=== PATIENT | female | born 1995 | race Asian ===

== ENCOUNTER → 2016-07-18 | Outpatient (CLI) | payer OTHER ==
--- NOTE | 2016-07-18 11:26 | CT ---
CT Scan of the Head (Without Contrast) Clinical History: 20-year-old female with increasing migraine headaches. Rule out structural abnormal ity. ICD 10 Diagnostic Code: G43.909. Technique: Axial unenhanced images were obtained from the vertex through the skull base, reformatted at 5.00 and 1.50 mm increments, and reviewed in bone, brain, and subdural windows. Images were repro cessed in parasagittal and paracoronal planes. The DFOV is 25.0 cm. Dose reduction techniques were ut ilized. Comparison Study: None. Findings: The ventricles and basilar cisterns are normal in size and symmetrical in configuration. Th ere is no midline shift, or other evidence of mass effect. There is no abnormal intra or extra-axial blood collection, or acute infarction identified. The paranasal sinuses and the mastoids are patent. The craniocervical junction, sella turcica, pineal gland, and the orbits are within normal limits. Impression: There is no acute abnormality identified on this unenhanced CT evaluation. If there is further clinical concern regarding the patient's symptoms, MR imaging is suggested, if no t otherwise contraindicated.
== END ==
LOC: FIMAGING 10:43
PROVIDERS: ATTEND Psychiatry & Neurology Neurology
DX: G43.909 Migraine, unspecified, not intractable, without status migrainosus (principal)

== ENCOUNTER 2018-04-25 16:16 | Emergency (ER) | payer OTHER ==
[2018-04-25 16:24] VITALS: BP 115/66
--- NOTE | 2018-04-25 16:50 | EDPHY ---
H & P Time Seen by Provider: 04/25/18 16:32 HPI/ROS: HPI Head injury. 22-year-old female by private vehicle. This patient reports that she struck the left parietal aspect of her skull on a set of stairs while walking under the stairs about an hour prior to arrival. She complains of some pain and a mild headache to this area. There was no loss of consciousness. She has not had any confusion. No nausea or vomiting. She is not on any anticoagulation or antiplatelet medications. No neck pain. She has no other complaints. ROS: Constitutional: No fever, no chills. No weakness. Eyes: No discharge. No changes in vision. ENT: No sore throat. No nasal congestion or rhinorrhea. Respiratory: No cough. No shortness of breath. Cardiac: No chest pain, no palpitations. Gastrointestinal: No abdominal pain, no vomiting, no diarrhea. Genitourinary: No hematuria. No dysuria or increased frequency with urination. Musculoskeletal: No back pain. No neck pain. No myalgias or arthralgias. Skin: No rashes. Neurological: As above. No focal weakness or altered sensation. Past medical history: She denies any significant past medical history. Social history: She is a student [employer]. Nonsmoker. No alcohol. She is here by herself. She does have a roommate. Physical Exam: General Appearance: Alert, no distress. This patient is responding to questions appropriately and in full sentences. This patient appears well- hydrated and well-nourished. Head: Normocephalic atraumatic. I palpated the area of the left parietal skull where she was hit. No bony step-off or deformity noted on palpation of this area. The skin is intact. There is no significant hematoma. Face: Facial bones are stable on palpation. Eyes: Pupils equal and round and reactive to light, no pallor or injection. No lid erythema or edema. No photophobia. No nystagmus ENT, Mouth: Mucous membranes moist. Dentition is intact. No malocclusion of the jaw. No tongue lacerations or abrasions. Pharynx is clear. The bilateral nasal canals are clear. No septal hematoma. External auditory canals and tympanic membranes are clear bilaterally. Neurological: Motor sensory function is intact. Cranial nerves are normal. Cerebellar function intact. Skin: Warm and dry, no rashes. No lacerations, abrasions or contusions. Musculoskeletal: Neck is supple and nontender. The trachea is midline. No midline cervical, thoracic, lumbar or sacral tenderness on palpation. No flank tenderness on palpation. Extremities are symmetrical, full range of motion. All joints in the bilateral upper and bilateral lower extremities range without pain or impingement. No tenderness on palpation of the long bones in the bilateral upper and bilateral lower extremities. Psychiatric: No agitation. No depression. Database: EKG: Imaging: Procedures: Emergency department course: Triage vital signs reviewed and are normal. This patient has an unremarkable physical exam. I do not feel that CT imaging is indicated at this time. She does feel comfortable going home. I discussed head injury precautions with her. Follow-up and return to emergency department precautions were thoroughly reviewed. All of her questions were answered. She was discharged from the emergency department in good condition. Differential Diagnosis: The differential diagnosis on this patient includes but is not limited to minor head injury. Skull fracture, epidural hematoma, subdural hematoma, traumatic subarachnoid hemorrhage, concussion unlikely. This represents a partial list of diagnoses considered. These considerations are based on history, physical exam, past history, reassessment and diagnostic testing. Smoking Status: Never smoked Constitutional: Initial Vital Signs Temperature (C) 36.6 C 04/25/18 16:21 Heart Rate 75 04/25/18 16:21 Respiratory Rate 18 04/25/18 16:21 Blood Pressure 115/66 04/25/18 16:21 O2 Sat (%) 95 04/25/18 16:21 O2 Delivery Mode Room Air Allergies/Adverse Reactions: No Known Allergies Allergy (Unverified 04/25/18 16:24) Home Medications: Medication Instructions Recorded NK [No Known Home Meds] 04/25/18 Departure - Departure Disposition: Home, Routine, Self-Care Clinical Impression: Head injury Condition: Good Instructions: Head Injury (ED) Additional Instructions: Read and follow provided instructions. Follow-up with your primary care physician in 1-2 days for re-evaluation as needed. Ibuprofen dosin mg every 6 hours with meals for the next 3 days only. Take only as needed for pain. Return to the emergency department for worsening headache, confusion, nausea and vomiting or other serious concerns. I will be here for the next 8 hr. He will free to come back if you have any concerns. Have you're roommate wake you in 1 hr as discussed if you are going to take a nap this evening. Referrals: NONE *PRIMARY CARE P,. [Primary Care Provider] - As per Instructions
== END 2018-04-25 17:03 | disposition home or self-care (01) ==
DX: S09.90XA Unspecified injury of head, initial encounter (principal); W22.09XA Striking against other stationary object, initial encounter; Y93.9 Activity, unspecified; Y92.89 Other specified places as the place of occurrence of the external cause